=== PATIENT | female | born 1985 | race Caucasian/White ===

== ENCOUNTER → 2022-11-25 22:38 | Outpatient (CLI) | payer MEDICAID, SELFPAY ==
[2022-11-25 18:56] LABS: Amphetamine/Metha Screen,Urine Negative ng/ml (<1000)
[2022-11-25 18:57] LABS: Barbiturates Screen,Urine Negative ng/ml (<200)
[2022-11-25 18:58] LABS: Benzodiazepines Screen,Urine Positive ng/ml (<200); Cannabinoid Screen,Urine Negative ng/ml (<50)
[2022-11-25 18:59] LABS: Cocaine Screen,Urine Negative ng/ml (<300)
[2022-11-25 19:00] LABS: Opiate Screen,Urine Negative ng/ml (<300); Phencyclidine Screen,Urine Negative ng/ml (<25)
[2022-11-25 23:08] LABS: Methadone Screen,Urine Negative ng/ml (<300)
== END ==
PROVIDERS: PCP Emergency Medicine; Visit Provider Emergency Medicine
DX: Z79.899 Other long term (current) drug therapy (principal)
CPT/HCPCS: 80305

== ENCOUNTER → 2023-08-18 09:33 | Outpatient (CLI) | payer MEDICAID, SELFPAY ==
[2023-08-18 23:49] LABS: Amphetamine/Metha Screen,Urine Negative ng/ml (<1000)
[2023-08-18 23:50] LABS: Barbiturates Screen,Urine Negative ng/ml (<200)
[2023-08-18 23:51] LABS: Benzodiazepines Screen,Urine Positive ng/ml (<200); Cannabinoid Screen,Urine Negative ng/ml (<50)
[2023-08-18 23:52] LABS: Cocaine Screen,Urine Negative ng/ml (<300); Methadone Screen,Urine Negative ng/ml (<300)
[2023-08-18 23:53] LABS: Opiate Screen,Urine Negative ng/ml (<300)
[2023-08-18 23:54] LABS: Phencyclidine Screen,Urine Negative ng/ml (<25)
== END ==
PROVIDERS: PCP Nurse Practitioner Family; Visit Provider Nurse Practitioner Family
DX: F41.9 Anxiety disorder, unspecified (principal)
CPT/HCPCS: 80305